=== PATIENT | male | born 1995 | race Caucasian/White ===

== ENCOUNTER 2020-04-23 07:33 | Emergency (ER) | payer BC ==
[~2020-04-23] VITALS: Ht 175.3 cm; Wt 81.8 kg
[2020-04-23 07:40] VITALS: TEMP 98.7
[2020-04-23] MEDS ORDERED: ZOLOFT 25MG25 MG PO (08:06)
[2020-04-23] MEDS ORDERED: PROAIR HFA0.09 MG/AC IH (08:12)
[2020-04-23 09:08] VITALS: BP 139/101; PULSE 101
== END 2020-04-23 09:09 | disposition home or self-care (01) ==
LOC: COL.ER 07:33
DX: R06.02 Shortness of breath (principal); R05 Cough; Z87.09 Personal history of other diseases of the respiratory system